=== PATIENT | male | born 1940 | race Caucasian/White ===

== ENCOUNTER 2019-08-02 14:00 | Inpatient (IN) | payer BC, OTHER ==
[~2019-08-02] VITALS: Ht 177.8 cm; Wt 84.8 kg
[2019-08-02] MEDS ORDERED: QUET50TA PO (14:44)
[2019-08-02] MEDS ORDERED: ZIPRASIDONE MESYLATE 20 MG VIAL IM ONE ×4 (15:00→15:45)
[2019-08-02 17:08] LABS: BASOPHILS % (AUTO) 0.6 % (0.0-2.0); EOSINOPHILS % (AUTO) 0.5 % (0.0-7.0); HEMATOCRIT 45.5 % (36.7-47.1); HEMOGLOBIN 15.7 g/dL (12.5-16.3); LYMPHOCYTES % (AUTO) 16.8 % (20.5-51.5); MEAN CORPUSCULAR HEMOGLOBIN 30.3 uug (23.8-33.4); MEAN CORPUSCULAR HGB CONC 35 g/dL (32.5-36.3); MEAN CORPUSCULAR VOLUME 87.5 fL (73.0-96.2); MONOCYTES # (AUTO) 0.6 K/uL (2.0-10.0); MONOCYTES % (AUTO) 9.1 % (0.0-11.0); NEUTROPHILS # (AUTO) 4.5 K/uL (1.8-8.9); PLATELET COUNT (AUTO) 214 K/uL (152-348); RED BLOOD CELL COUNT(AUTO) 5.19 MIL/uL (4.06-5.63); WHITE BLOOD COUNT (AUTO) 6.2 K/uL (3.6-10.2)
[2019-08-02 17:14] LABS: CARBON DIOXIDE 23 mmol/L (21-32); CHLORIDE 107 mmol/L (98-107); CREATININE 0.9 mg/dL (0.6-1.3); GLUCOSE 103 mg/dL (74-106); POTASSIUM 3.3 mmol/L (3.5-5.1); UREA NITROGEN, BLOOD 20 mg/dL (7-18)
[2019-08-02 17:16] LABS: ETHANOL < 3 MG/DL (0-0)
[2019-08-02 17:20] LABS: ALANINE AMINOTRANSFERASE 12 U/L (16-63); ALKALINE PHOSPHATASE 83 U/L (50-136); ASPARTATE AMINOTRANSFERASE 18 U/L (15-37); BILIRUBIN,DIRECT 0.2 mg/dL (0.0-0.2); BILIRUBIN,TOTAL 0.8 mg/dL (0.2-1.0); TOTAL PROTEIN, SERUM 7.4 g/dL (6.4-8.2)
[2019-08-02 17:21] LABS: ACETAMINOPHEN < 2.0 ug/mL (10-30)
[2019-08-02] MEDS ORDERED: KETAMINE HCL 500 MG/10 ML INJ IM ONE (17:30)
[2019-08-02 18:48] VITALS: BP 111/67
[2019-08-02] MEDS ORDERED: POTASSIUM CHLORIDE 20 MEQ TAB.PRT.SR PO ONE (20:45)
[2019-08-02 20:55] VITALS: BP 126/75
[2019-08-02] MEDS ORDERED: MAGNESIUM HYDROXIDE 30 ML LIQUID UDC PO PRN (21:00)
[2019-08-02] MEDS ORDERED: MAG HYDROX/AL HYDROX/SIMETH 30 ML LIQUID UDC PO PRN (21:00)
[2019-08-02] MEDS ORDERED: HALOPERIDOL LACTATE 5 MG/1 ML VIAL IM ONE (21:15)
[2019-08-02] MEDS ORDERED: LORAZEPAM 2 MG/1 ML VIAL IM ONE (21:15)
[2019-08-02] MEDS ORDERED: diphenhydrAMINE 50 MG/1 ML VIAL IM ONE (21:15)
[2019-08-02] MEDS: CLONAZEPAM 0.5 MG TABLET PO PRN (21:40)
[2019-08-03] MEDS ORDERED: TAMS-3 PO (02:34)
[2019-08-03] MEDS ORDERED: FINA5TAB11 PO (02:34)
[2019-08-03 07:30] VITALS: BP 142/91
[2019-08-03] MEDS: DIVALPROEX SPRINKLE 125 MG CAP.SPRINK PO SCH ×2 (10:33→21:34)
[2019-08-03] MEDS: CLONAZEPAM 0.5 MG TABLET PO PRN ×2 (12:30→19:51)
[2019-08-03] MEDS: TAMSULOSIN HCL 0.4 MG CAP.SR.24H PO SCH ×2 (12:30→21:34)
[2019-08-03] MEDS: FINASTERIDE 5 MG TABLET PO SCH (12:30)
[2019-08-03 16:00] VITALS: BP 107/73
[2019-08-03 20:00] VITALS: BP 110/74
[2019-08-03] MEDS: QUETIAPINE FUMARATE 25 MG TABLET PO SCH (21:34)
[2019-08-04 07:12] LABS: BASOPHILS % (AUTO) 0.4 % (0.0-2.0); EOSINOPHILS # (AUTO) 0.1 K/uL (0.0-0.7); EOSINOPHILS % (AUTO) 1.2 % (0.0-7.0); HEMATOCRIT 47.6 % (36.7-47.1); HEMOGLOBIN 15.9 g/dL (12.5-16.3); LYMPHOCYTES # (AUTO) 1.6 K/uL (20.0-40.0); LYMPHOCYTES % (AUTO) 26.7 % (20.5-51.5); MEAN CORPUSCULAR HEMOGLOBIN 30.5 uug (23.8-33.4); MEAN CORPUSCULAR HGB CONC 33 g/dL (32.5-36.3); MEAN CORPUSCULAR VOLUME 91.5 fL (73.0-96.2); MONOCYTES # (AUTO) 0.6 K/uL (2.0-10.0); MONOCYTES % (AUTO) 10.6 % (0.0-11.0); NEUTROPHILS # (AUTO) 3.7 K/uL (1.8-8.9); NEUTROPHILS % (AUTO) 61.1 % (38.5-71.5); PLATELET COUNT (AUTO) 218 K/uL (152-348); RED BLOOD CELL COUNT(AUTO) 5.21 MIL/uL (4.06-5.63); WHITE BLOOD COUNT (AUTO) 6.1 K/uL (3.6-10.2)
[2019-08-04 07:30] VITALS: BP 130/90
[2019-08-04] MEDS: FINASTERIDE 5 MG TABLET PO SCH (08:38)
[2019-08-04] MEDS: DIVALPROEX SPRINKLE 125 MG CAP.SPRINK PO SCH ×2 (08:39→20:11)
[2019-08-04] MEDS ORDERED: Z GUARD REMEDY PASTE 57 GM TUBE TOP PRN (12:00)
[2019-08-04] MEDS: CLONAZEPAM 0.5 MG TABLET PO PRN (13:50)
[2019-08-04 16:00] VITALS: BP 123/75
[2019-08-04] MEDS: TAMSULOSIN HCL 0.4 MG CAP.SR.24H PO SCH (20:11)
[2019-08-04] MEDS: QUETIAPINE FUMARATE 25 MG TABLET PO SCH (20:12)
[2019-08-04] MEDS: Z GUARD REMEDY PASTE 57 GM TUBE TOP SCH (20:12)
[2019-08-04 20:37] VITALS: BP 114/78
[2019-08-04] MEDS: TEMAZEPAM 7.5 MG CAPSULE PO PRN (22:00)
[2019-08-05 07:49] VITALS: BP 157/56
[2019-08-05] MEDS: DIVALPROEX SPRINKLE 125 MG CAP.SPRINK PO SCH ×2 (08:10→20:10)
[2019-08-05] MEDS: FINASTERIDE 5 MG TABLET PO SCH (08:10)
[2019-08-05] MEDS: Z GUARD REMEDY PASTE 57 GM TUBE TOP SCH ×2 (08:10→20:12)
[2019-08-05 12:11] LABS: *BILIRUBIN,URIN 1+ (NEGATIVE); *BLOOD, URINE NEGATIVE (NEGATIVE); *CLARITY,URINE CLEAR (CLEAR); *COLOR,URINE YELLOW (YELLOW); *KETONES,URINE 1+ (NEGATIVE); LEUKOCYTE ESTERASE ,URINE NEGATIVE (NEGATIVE); NITRITE, URINE NEGATIVE (NEGATIVE); UGLUCOSE NEGATIVE (NEGATIVE)
[2019-08-05] MEDS ORDERED: LORAZEPAM 2 MG/1 ML VIAL IM ONE (12:15)
[2019-08-05] MEDS ORDERED: HALOPERIDOL LACTATE 5 MG/1 ML VIAL IM ONE (12:15)
[2019-08-05] MEDS ORDERED: diphenhydrAMINE 50 MG/1 ML VIAL IM ONE (12:15)
[2019-08-05 16:20] VITALS: BP 104/62
[2019-08-05] MEDS: CLONAZEPAM 0.5 MG TABLET PO PRN (17:31)
[2019-08-05] MEDS: QUETIAPINE FUMARATE 25 MG TABLET PO SCH (20:09)
[2019-08-05] MEDS: TAMSULOSIN HCL 0.4 MG CAP.SR.24H PO SCH (20:09)
[2019-08-05 20:23] VITALS: BP 146/60
[2019-08-06 07:46] VITALS: BP 155/62
[2019-08-06] MEDS: DIVALPROEX SPRINKLE 125 MG CAP.SPRINK PO SCH ×2 (08:30→20:40)
[2019-08-06] MEDS: FINASTERIDE 5 MG TABLET PO SCH (08:32)
[2019-08-06] MEDS: Z GUARD REMEDY PASTE 57 GM TUBE TOP SCH ×2 (08:32→20:41)
[2019-08-06] MEDS: CLONAZEPAM 0.5 MG TABLET PO PRN ×2 (08:39→21:16)
[2019-08-06 16:40] VITALS: BP 115/79
[2019-08-06 20:09] VITALS: BP 152/70
[2019-08-06] MEDS: TAMSULOSIN HCL 0.4 MG CAP.SR.24H PO SCH (20:40)
[2019-08-06] MEDS: QUETIAPINE FUMARATE 25 MG TABLET PO SCH (20:40)
[2019-08-06] MEDS: ACETAMINOPHEN 325 MG TABLET PO PRN (21:16)
[2019-08-07 07:30] VITALS: BP 118/69
[2019-08-07] MEDS: DIVALPROEX SPRINKLE 125 MG CAP.SPRINK PO SCH ×3 (08:13→16:02)
[2019-08-07] MEDS: FINASTERIDE 5 MG TABLET PO SCH (08:13)
[2019-08-07] MEDS: CLONAZEPAM 0.5 MG TABLET PO PRN ×3 (08:13→17:22)
[2019-08-07] MEDS: Z GUARD REMEDY PASTE 57 GM TUBE TOP SCH ×2 (08:23→20:27)
[2019-08-07 15:47] VITALS: BP 111/80
[2019-08-07 20:00] VITALS: BP 116/77
[2019-08-07] MEDS: TAMSULOSIN HCL 0.4 MG CAP.SR.24H PO SCH (20:10)
[2019-08-07] MEDS: QUETIAPINE FUMARATE 25 MG TABLET PO SCH (20:10)
[2019-08-08] MEDS: CLONAZEPAM 0.5 MG TABLET PO PRN ×3 (06:28→13:12)
[2019-08-08 07:30] VITALS: BP 128/81
[2019-08-08] MEDS: FINASTERIDE 5 MG TABLET PO SCH (08:33)
[2019-08-08] MEDS: DIVALPROEX SPRINKLE 125 MG CAP.SPRINK PO SCH ×3 (08:34→16:24)
[2019-08-08] MEDS: Z GUARD REMEDY PASTE 57 GM TUBE TOP SCH ×2 (08:40→21:03)
[2019-08-08 15:17] VITALS: BP 124/81
[2019-08-08 20:11] VITALS: BP 111/91
[2019-08-08] MEDS: QUETIAPINE FUMARATE 25 MG TABLET PO SCH (20:11)
[2019-08-08] MEDS: TAMSULOSIN HCL 0.4 MG CAP.SR.24H PO SCH (20:11)
[2019-08-08] MEDS: TEMAZEPAM 7.5 MG CAPSULE PO PRN (21:51)
[2019-08-09 07:30] VITALS: BP 130/86
[2019-08-09] MEDS: FINASTERIDE 5 MG TABLET PO SCH (08:21)
[2019-08-09] MEDS: Z GUARD REMEDY PASTE 57 GM TUBE TOP SCH ×2 (08:22→20:24)
[2019-08-09] MEDS: QUETIAPINE FUMARATE 25 MG TABLET PO SCH ×2 (08:38→20:18)
[2019-08-09] MEDS: DIVALPROEX SPRINKLE 125 MG CAP.SPRINK PO SCH ×3 (08:38→17:02)
[2019-08-09] MEDS ORDERED: QUETIAPINE FUMARATE 25 MG TABLET PO ONE (08:45)
[2019-08-09] MEDS ORDERED: DIVALPROEX SPRINKLE 125 MG CAP.SPRINK PO ONE (08:45)
[2019-08-09] MEDS ORDERED: QUETIAPINE FUMARATE 25 MG TABLET PO SCH (09:00)
[2019-08-09 16:00] VITALS: BP 120/72
[2019-08-09 19:50] VITALS: BP 125/77
[2019-08-09] MEDS: TAMSULOSIN HCL 0.4 MG CAP.SR.24H PO SCH (20:18)
[2019-08-10 07:30] VITALS: BP 144/96
[2019-08-10] MEDS: FINASTERIDE 5 MG TABLET PO SCH (09:27)
[2019-08-10] MEDS: QUETIAPINE FUMARATE 25 MG TABLET PO SCH ×3 (09:27→23:14)
[2019-08-10] MEDS: DIVALPROEX SPRINKLE 125 MG CAP.SPRINK PO SCH ×3 (09:27→17:06)
[2019-08-10] MEDS: Z GUARD REMEDY PASTE 57 GM TUBE TOP SCH ×2 (09:28→21:49)
[2019-08-10 16:00] VITALS: BP 129/89
[2019-08-10 20:37] VITALS: BP 128/73
[2019-08-10] MEDS: TAMSULOSIN HCL 0.4 MG CAP.SR.24H PO SCH (21:00)
[2019-08-11 07:30] VITALS: BP 153/60
[2019-08-11] MEDS: CLONAZEPAM 0.5 MG TABLET PO PRN (09:33)
[2019-08-11] MEDS: FINASTERIDE 5 MG TABLET PO SCH (09:33)
[2019-08-11] MEDS: DIVALPROEX SPRINKLE 125 MG CAP.SPRINK PO SCH ×3 (09:33→21:30)
[2019-08-11] MEDS: Z GUARD REMEDY PASTE 57 GM TUBE TOP SCH ×2 (09:34→21:43)
[2019-08-11] MEDS: QUETIAPINE FUMARATE 25 MG TABLET PO SCH (09:34)
[2019-08-11 16:45] VITALS: BP 144/58
[2019-08-11 20:48] VITALS: BP 159/63
[2019-08-11] MEDS ORDERED: QUETIAPINE FUMARATE 25 MG TABLET PO SCH (21:00)
[2019-08-11] MEDS: TAMSULOSIN HCL 0.4 MG CAP.SR.24H PO SCH (21:30)
[2019-08-11] MEDS: QUETIAPINE FUMARATE 100 MG TABLET PO SCH (21:30)
[2019-08-12 07:30] VITALS: BP 127/70
[2019-08-12] MEDS: QUETIAPINE FUMARATE 25 MG TABLET PO SCH (08:36)
[2019-08-12] MEDS: FINASTERIDE 5 MG TABLET PO SCH (08:36)
[2019-08-12] MEDS: DIVALPROEX SPRINKLE 125 MG CAP.SPRINK PO SCH ×2 (08:36→20:55)
[2019-08-12] MEDS: Z GUARD REMEDY PASTE 57 GM TUBE TOP SCH ×2 (08:43→21:09)
[2019-08-12 16:00] VITALS: BP 120/75
[2019-08-12 20:24] VITALS: BP 139/84
[2019-08-12] MEDS: QUETIAPINE FUMARATE 100 MG TABLET PO SCH (20:55)
[2019-08-12] MEDS: TAMSULOSIN HCL 0.4 MG CAP.SR.24H PO SCH (20:55)
[2019-08-13 07:30] VITALS: BP 115/67
[2019-08-13] MEDS: FINASTERIDE 5 MG TABLET PO SCH (09:22)
[2019-08-13] MEDS: DIVALPROEX SPRINKLE 125 MG CAP.SPRINK PO SCH ×2 (09:22→20:55)
[2019-08-13] MEDS: QUETIAPINE FUMARATE 25 MG TABLET PO SCH (09:22)
[2019-08-13] MEDS: Z GUARD REMEDY PASTE 57 GM TUBE TOP SCH ×2 (09:23→21:02)
[2019-08-13] MEDS: CLONAZEPAM 0.5 MG TABLET PO PRN (11:58)
[2019-08-13 16:00] VITALS: BP 116/58
[2019-08-13 20:22] VITALS: BP 118/64
[2019-08-13] MEDS: TAMSULOSIN HCL 0.4 MG CAP.SR.24H PO SCH (20:55)
[2019-08-13] MEDS: QUETIAPINE FUMARATE 100 MG TABLET PO SCH (20:55)
[2019-08-13] MEDS: ACETAMINOPHEN 325 MG TABLET PO PRN (20:58)
[2019-08-14 07:30] VITALS: BP 98/60
[2019-08-14] MEDS: CLONAZEPAM 0.5 MG TABLET PO PRN ×3 (08:26→17:35)
[2019-08-14] MEDS: QUETIAPINE FUMARATE 25 MG TABLET PO SCH (09:19)
[2019-08-14] MEDS: DIVALPROEX SPRINKLE 125 MG CAP.SPRINK PO SCH ×2 (09:19→21:17)
[2019-08-14] MEDS: FINASTERIDE 5 MG TABLET PO SCH (09:20)
[2019-08-14] MEDS: Z GUARD REMEDY PASTE 57 GM TUBE TOP SCH ×2 (09:21→21:14)
[2019-08-14 15:18] VITALS: BP 136/83
[2019-08-14] MEDS ORDERED: CLONAZEPAM 0.5 MG TABLET PO PRN (17:45)
[2019-08-14 20:00] VITALS: BP 128/78
[2019-08-14] MEDS: TAMSULOSIN HCL 0.4 MG CAP.SR.24H PO SCH (21:17)
[2019-08-14] MEDS: QUETIAPINE FUMARATE 100 MG TABLET PO SCH (21:19)
[2019-08-15 06:52] LABS: CARBON DIOXIDE 29 mmol/L (21-32); CHLORIDE 109 mmol/L (98-107); CREATININE 1.2 mg/dL (0.6-1.3); GLUCOSE 126 mg/dL (74-106); POTASSIUM 3.9 mmol/L (3.5-5.1); UREA NITROGEN, BLOOD 42 mg/dL (7-18)
[2019-08-15 07:30] VITALS: BP 125/93
[2019-08-15] MEDS: DIVALPROEX SPRINKLE 125 MG CAP.SPRINK PO SCH ×2 (08:02→21:36)
[2019-08-15] MEDS: QUETIAPINE FUMARATE 25 MG TABLET PO SCH (08:02)
[2019-08-15] MEDS: ACETAMINOPHEN 325 MG TABLET PO PRN (08:02)
[2019-08-15] MEDS: Z GUARD REMEDY PASTE 57 GM TUBE TOP SCH ×2 (08:02→21:37)
[2019-08-15] MEDS: FINASTERIDE 5 MG TABLET PO SCH (08:02)
[2019-08-15 15:43] VITALS: BP 120/80
[2019-08-15 19:42] VITALS: BP 119/77
[2019-08-15] MEDS: TAMSULOSIN HCL 0.4 MG CAP.SR.24H PO SCH (21:00)
[2019-08-15] MEDS: QUETIAPINE FUMARATE 100 MG TABLET PO SCH (21:36)
[2019-08-16 07:30] VITALS: BP 149/90
[2019-08-16 07:33] LABS: BASOPHILS % (AUTO) 0.3 % (0.0-2.0); EOSINOPHILS # (AUTO) 0.1 K/uL (0.0-0.7); EOSINOPHILS % (AUTO) 0.6 % (0.0-7.0); HEMATOCRIT 53.2 % (36.7-47.1); HEMOGLOBIN 18.4 g/dL (12.5-16.3); LYMPHOCYTES # (AUTO) 1.5 K/uL (20.0-40.0); LYMPHOCYTES % (AUTO) 14.3 % (20.5-51.5); MEAN CORPUSCULAR HEMOGLOBIN 32.2 uug (23.8-33.4); MEAN CORPUSCULAR HGB CONC 35 g/dL (32.5-36.3); MEAN CORPUSCULAR VOLUME 92.9 fL (73.0-96.2); MONOCYTES # (AUTO) 1.1 K/uL (2.0-10.0); MONOCYTES % (AUTO) 10.6 % (0.0-11.0); NEUTROPHILS # (AUTO) 7.9 K/uL (1.8-8.9); NEUTROPHILS % (AUTO) 74.2 % (38.5-71.5); PLATELET COUNT (AUTO) 259 K/uL (152-348); RED BLOOD CELL COUNT(AUTO) 5.72 MIL/uL (4.06-5.63); WHITE BLOOD COUNT (AUTO) 10.6 K/uL (3.6-10.2)
[2019-08-16 07:44] LABS: CARBON DIOXIDE 30 mmol/L (21-32); CHLORIDE 111 mmol/L (98-107); CREATININE 1.1 mg/dL (0.6-1.3); GLUCOSE 110 mg/dL (74-106); MAGNESIUM 2.7 mg/dL (1.8-2.4); PHOSPHOROUS 3.7 mg/dL (2.5-4.9); POTASSIUM 4.5 mmol/L (3.5-5.1); UREA NITROGEN, BLOOD 40 mg/dL (7-18); VALPROIC ACID 72 ug/mL (50-100)
[2019-08-16] MEDS: QUETIAPINE FUMARATE 25 MG TABLET PO SCH (08:57)
[2019-08-16] MEDS: DIVALPROEX SPRINKLE 125 MG CAP.SPRINK PO SCH (08:57)
[2019-08-16] MEDS: FINASTERIDE 5 MG TABLET PO SCH (08:58)
[2019-08-16] MEDS: Z GUARD REMEDY PASTE 57 GM TUBE TOP SCH (09:22)
[2019-08-16] MEDS ORDERED: DIVA125C2 PO (16:26)
[2019-08-16] MEDS ORDERED: QUET100T PO (16:26)
[2019-08-16] MEDS ORDERED: QUET50TA PO (16:26)
[2019-08-16] MEDS ORDERED: FINA5TAB3 PO (16:26)
[2019-08-16] MEDS ORDERED: TAMS-3 PO (16:26)
[2019-08-16] MEDS ORDERED: CLON0.5T PO (16:26)
== END 2019-08-16 15:37 | disposition short-term general hospital (02) | DRG 885 ==
LOC: ER 14:00 → GPS 18:09
PROVIDERS: ADMIT Psychiatry & Neurology Psychiatry
PROC: 0HBRXZZ Excision of Toe Nail, External Approach (ICD-10-PCS; principal; 2019-08-05)
DX: F29 Unspecified psychosis not due to a substance or known physiological condition (principal); N19 Unspecified kidney failure; G93.41 Metabolic encephalopathy; F03.91 Unspecified dementia, unspecified severity, with behavioral disturbance; E87.0 Hyperosmolality and hypernatremia; N40.0 Benign prostatic hyperplasia without lower urinary tract symptoms; F41.9 Anxiety disorder, unspecified; E03.9 Hypothyroidism, unspecified; L60.3 Nail dystrophy; M79.672 Pain in left foot; M79.671 Pain in right foot; E86.9 Volume depletion, unspecified; Z79.899 Other long term (current) drug therapy
CPT/HCPCS: 36415; 70030-TC; 70450; 71045; 80164; 83735; 84100; 84443; 84481; 85025; 85730; 87040; 87086; A4663; C1758; G0480; G0480-TC; J1200; J1630; J2060; J3486

== ENCOUNTER 2019-08-16 15:46 | Inpatient (IN) | payer BC ==
[~2019-08-16] VITALS: Ht 177.8 cm; Wt 90.7 kg
[~2019-08-16 15:46] MED LIST: FINA5TAB11 PO; TAMS-3 PO
[2019-08-16 16:02] VITALS: BP 131/100
[2019-08-16] MEDS ORDERED: TAMS-3 PO (16:26)
[2019-08-16] MEDS ORDERED: DIVA125C2 PO (16:26)
[2019-08-16] MEDS ORDERED: QUET100T PO (16:26)
[2019-08-16] MEDS ORDERED: QUET50TA PO (16:26)
[2019-08-16] MEDS ORDERED: FINA5TAB3 PO (16:26)
[2019-08-16] MEDS ORDERED: CLON0.5T PO (16:26)
--- NOTE | 2019-08-16 16:27 | NUR ---
79 YEAR OLD MALE RECEIVED FROM [facility] TO ROOM 330 .PT IS AXOX1. CALLED FOR ADMISSION ORDERS.
[2019-08-16] MEDS ORDERED: MAG HYDROX/AL HYDROX/SIMETH 30 ML LIQUID UDC PO PRN (16:45)
[2019-08-16] MEDS ORDERED: ACETAMINOPHEN 325 MG TABLET PO PRN ×2 (16:45→18:00)
[2019-08-16] MEDS ORDERED: MAGNESIUM HYDROXIDE 30 ML LIQUID UDC PO PRN (16:45)
[2019-08-16] MEDS ORDERED: HYDROCODONE/APAP 5-325MG TABLET PO PRN (18:00)
[2019-08-16] MEDS ORDERED: ZOLPIDEM 5 MG TABLET PO PRN (18:00)
[2019-08-16] MEDS ORDERED: Z GUARD REMEDY PASTE 57 GM TUBE TOP PRN (18:00)
[2019-08-16] MEDS ORDERED: ONDANSETRON 4 MG/2 ML VIAL IV PRN (18:00)
--- NOTE | 2019-08-16 19:20 | NUR ---
RECEIVED PT ON BED. PT SHOWS NO SIGNS OF ACUTE DISTRESS. PT IV INTACT. SAFETY AND COMFORT PROVIDED. WILL CONTINUE TO MONITOR.
[2019-08-16] MEDS: IV NS 1000 ML 1,000 ML IV PRN (19:39)
[2019-08-16 20:00] VITALS: BP 146/77
[2019-08-16] MEDS: DIVALPROEX SPRINKLE 125 MG CAP.SPRINK PO SCH (20:43)
[2019-08-16] MEDS: QUETIAPINE FUMARATE 100 MG TABLET PO SCH (20:43)
[2019-08-16] MEDS: TAMSULOSIN HCL 0.4 MG CAP.SR.24H PO SCH (20:43)
[2019-08-16] MEDS: ENOXAPARIN SODIUM 40 MG/0.4 ML DISP.SYRIN SQ SCH (20:45)
[2019-08-17] MEDS ORDERED: HALOPERIDOL LACTATE 5 MG/1 ML VIAL IM PRN (00:45)
[2019-08-17 05:00] VITALS: BP 119/74
[2019-08-17 06:37] LABS: BASOPHILS % (AUTO) 0.5 % (0.0-2.0); EOSINOPHILS # (AUTO) 0.1 K/uL (0.0-0.7); HEMATOCRIT 52.5 % (36.7-47.1); HEMOGLOBIN 17.5 g/dL (12.5-16.3); LYMPHOCYTES # (AUTO) 1.6 K/uL (20.0-40.0); LYMPHOCYTES % (AUTO) 21.7 % (20.5-51.5); MEAN CORPUSCULAR HEMOGLOBIN 30.5 uug (23.8-33.4); MEAN CORPUSCULAR HGB CONC 33 g/dL (32.5-36.3); MEAN CORPUSCULAR VOLUME 91.8 fL (73.0-96.2); MONOCYTES # (AUTO) 0.8 K/uL (2.0-10.0); MONOCYTES % (AUTO) 10.3 % (0.0-11.0); NEUTROPHILS % (AUTO) 66.5 % (38.5-71.5); PLATELET COUNT (AUTO) 241 K/uL (152-348); RED BLOOD CELL COUNT(AUTO) 5.72 MIL/uL (4.06-5.63); WHITE BLOOD COUNT (AUTO) 7.6 K/uL (3.6-10.2)
--- NOTE | 2019-08-17 06:39 | NUR ---
AT [address] TIM FREED ORDERED HALDOL 5MG ONCE PRN FOR PT BECOME COMBATIVE, AGITATED AND SPITTING. HALDOL ADMINISTERED . PT TOLERATED IT WELL. PT SLEPT INTERMITTENTLY. PT AGITATED WHEN DOING ADL'S . PRESCRIBED MEDICATION GIVEN AND PT TOLERATED IT WELL. SAFETY AND COMFORT PROVIDED. WILL ENDORSE TO INCOMING NURSE FOR CONTINUITY OF CARE.
[2019-08-17 06:50] LABS: CARBON DIOXIDE 28 mmol/L (21-32); CHLORIDE 112 mmol/L (98-107); CHOLESTEROL 145 mg/dL (<200); CREATININE 0.9 mg/dL (0.6-1.3); GLUCOSE 100 mg/dL (74-106); HDL CHOLESTEROL 56 mg/dL (40-60); MAGNESIUM 2.4 mg/dL (1.8-2.4); PHOSPHOROUS 3.4 mg/dL (2.5-4.9); POTASSIUM 3.8 mmol/L (3.5-5.1); TRIGLYCERIDES 65 MG/DL (30-150); UREA NITROGEN, BLOOD 40 mg/dL (7-18)
--- NOTE | 2019-08-17 08:48 | NUR ---
Pt. sleeping in bed arousable to touch. Pt. has IV in R forearm 20 gauge intact patent running NS 75 cc/hr. Safety measures in place. Call light within reach. Will continue to monitor pt.
[2019-08-17] MEDS ORDERED: FINASTERIDE 5 MG TABLET PO SCH (09:00)
[2019-08-17] MEDS: IV NS 1000 ML 1,000 ML IV PRN (09:19)
[2019-08-17 09:56] LABS: *BILIRUBIN,URIN 1+ (NEGATIVE); *BLOOD, URINE NEGATIVE (NEGATIVE); *CLARITY,URINE SLIGHTLY CLOUDY (CLEAR); *COLOR,URINE YELLOW (YELLOW); *KETONES,URINE 1+ (NEGATIVE); LEUKOCYTE ESTERASE ,URINE NEGATIVE (NEGATIVE); NITRITE, URINE NEGATIVE (NEGATIVE); UGLUCOSE NEGATIVE (NEGATIVE)
[2019-08-17] MEDS ORDERED: IV D5/ 0.9% NACL 1,000 ML IV PRN (10:00)
[2019-08-17 10:25] LABS: MUCUS,URINE FEW /LPF (0-FEW); SQUAMOUS EPITHELIAL CELL,UR MODERATE /HPF (NONE SEEN)
[2019-08-17 10:26] LABS: BACTERIA,URINE FEW /HPF (NONE SEEN); RBC,URINE 0-3 /HPF (0-3); WBC,URINE 0-3 /HPF (0-3)
[2019-08-17] MEDS: DIVALPROEX SPRINKLE 125 MG CAP.SPRINK PO SCH ×3 (10:44→20:34)
[2019-08-17] MEDS: FINASTERIDE 5 MG TABLET PO SCH (10:44)
[2019-08-17 11:24] VITALS: BP 138/75
[2019-08-17 15:07] VITALS: BP 136/76
[2019-08-17] MEDS: IV 1/2NS 1000 ML 1,000 ML IV PRN (16:12)
[2019-08-17] MEDS: ENOXAPARIN SODIUM 40 MG/0.4 ML DISP.SYRIN SQ SCH (18:26)
--- NOTE | 2019-08-17 18:41 | NUR ---
Pt. resting in bed arousable to touch. Pt. took medication throughout shift. Pt. fairly compliant. IV in R forearm 20 gauge intact patent running fluids. Safety measures in place. Call light within reach. Will continue to monitor pt and endorse to PM nurse.
[2019-08-17] MEDS: TAMSULOSIN HCL 0.4 MG CAP.SR.24H PO SCH ×2 (20:25→20:34)
[2019-08-17] MEDS: QUETIAPINE FUMARATE 100 MG TABLET PO SCH ×2 (20:25→20:35)
[2019-08-17 20:48] VITALS: BP 130/74
--- NOTE | 2019-08-17 21:00 | NUR ---
PATIENT REFUSED HS MEDICATION. SPIT IT OUT. UNABLE TO REDIRECT. PATIENT IS VERY CONFUSED AND DISORIENTED. ALL NEEDS ATTENDED. WILL CONTINUE TO MONITOR AND ASSESS.
[2019-08-18 04:51] VITALS: BP 145/79
[2019-08-18] MEDS: IV 1/2NS 1000 ML 1,000 ML IV PRN ×2 (05:54→23:57)
[2019-08-18 06:36] LABS: CARBON DIOXIDE 28 mmol/L (21-32); CHLORIDE 113 mmol/L (98-107); CREATININE 0.9 mg/dL (0.6-1.3); GLUCOSE 89 mg/dL (74-106); POTASSIUM 3.5 mmol/L (3.5-5.1); UREA NITROGEN, BLOOD 34 mg/dL (7-18)
[2019-08-18 06:40] LABS: BASOPHILS % (AUTO) 0.5 % (0.0-2.0); EOSINOPHILS # (AUTO) 0.1 K/uL (0.0-0.7); EOSINOPHILS % (AUTO) 0.9 % (0.0-7.0); HEMATOCRIT 48.7 % (36.7-47.1); HEMOGLOBIN 17.1 g/dL (12.5-16.3); LYMPHOCYTES # (AUTO) 1.7 K/uL (20.0-40.0); LYMPHOCYTES % (AUTO) 22.3 % (20.5-51.5); MEAN CORPUSCULAR HEMOGLOBIN 32.5 uug (23.8-33.4); MEAN CORPUSCULAR HGB CONC 35 g/dL (32.5-36.3); MEAN CORPUSCULAR VOLUME 92.5 fL (73.0-96.2); MONOCYTES # (AUTO) 0.8 K/uL (2.0-10.0); MONOCYTES % (AUTO) 11.2 % (0.0-11.0); NEUTROPHILS # (AUTO) 4.9 K/uL (1.8-8.9); NEUTROPHILS % (AUTO) 65.1 % (38.5-71.5); PLATELET COUNT (AUTO) 238 K/uL (152-348); RED BLOOD CELL COUNT(AUTO) 5.27 MIL/uL (4.06-5.63); WHITE BLOOD COUNT (AUTO) 7.5 K/uL (3.6-10.2)
--- NOTE | 2019-08-18 08:00 | NUR ---
received pt. awake in bed alert oriented to self. IV infiltrated on R forearm. Removed IV, elevated arm, and put cold compress on arm. Will continue to monitor site. New IV in L hand 20 gauge intact patent running fluid. Safety measures in place. Call light within reach. Will continue to monitor pt.
[2019-08-18] MEDS: FINASTERIDE 5 MG TABLET PO SCH (08:32)
[2019-08-18] MEDS: DIVALPROEX SPRINKLE 125 MG CAP.SPRINK PO SCH ×3 (08:32→21:00)
[2019-08-18 11:53] VITALS: BP 134/86
--- NOTE | 2019-08-18 13:20 | NUR ---
Oral care done. AM medications given. Pt. took all medications. safety measures in place. Call light within reach will continue to monitor pt.
[2019-08-18 15:51] VITALS: BP 142/94
[2019-08-18] MEDS: ENOXAPARIN SODIUM 40 MG/0.4 ML DISP.SYRIN SQ SCH (17:43)
--- NOTE | 2019-08-18 19:01 | NUR ---
Pt. resting in bed alert oriented to self. Pt. denies pain or discomfort. Pt. denies SOB/ difficulty breathing. Safety measures in place. Calll light within reach. Will endorse to PM nurse.
[2019-08-18 19:57] VITALS: BP 142/88
--- NOTE | 2019-08-18 20:00 | NUR ---
PATIENT ASLEEP IN BED. EASILY AROUSABLE. ALERT TO SELF ONLY. CONFUSED. UNABLE TO COMPREHEND. IVF INFUSING TO LEFT HAND. ON RA. VS WNL. NO S/S OF ANY PAIN OR DISCOMFORT. NO RESP. DISTRESS NOTED. BED ALARM ON. CALL LIGHT IN REACH. ALL NEEDS ATTENDED. WILL CONTINUE TO MONITOR AND ASSESS.
[2019-08-18] MEDS: QUETIAPINE FUMARATE 100 MG TABLET PO SCH ×2 (20:32→21:00)
[2019-08-18] MEDS: TAMSULOSIN HCL 0.4 MG CAP.SR.24H PO SCH ×2 (20:32→21:00)
--- NOTE | 2019-08-18 21:10 | NUR ---
PATIENT REFUSED HS MEDS. BENCH ASSEMBLER [employer]TERY NOTIFIED.
[2019-08-19 05:16] VITALS: BP 116/82
--- NOTE | 2019-08-19 05:45 | NUR ---
PATIENT ASLEEP IN BED. SLEPT WELL. IVF INFUSING WELL. BED ALARM ON. REPOSITIONED. BED ALARM ON. CALL LIGHT IN REACH, ALL NEEDS ATTENDED, WILL CONTINUE TO MONITOR AND ASSESS.
[2019-08-19 06:30] LABS: BASOPHILS % (AUTO) 0.6 % (0.0-2.0); EOSINOPHILS # (AUTO) 0.1 K/uL (0.0-0.7); EOSINOPHILS % (AUTO) 0.8 % (0.0-7.0); HEMATOCRIT 46.9 % (36.7-47.1); HEMOGLOBIN 15.9 g/dL (12.5-16.3); LYMPHOCYTES # (AUTO) 1.7 K/uL (20.0-40.0); LYMPHOCYTES % (AUTO) 24.5 % (20.5-51.5); MEAN CORPUSCULAR HEMOGLOBIN 30.9 uug (23.8-33.4); MEAN CORPUSCULAR HGB CONC 34 g/dL (32.5-36.3); MEAN CORPUSCULAR VOLUME 90.9 fL (73.0-96.2); MONOCYTES # (AUTO) 0.9 K/uL (2.0-10.0); MONOCYTES % (AUTO) 12.9 % (0.0-11.0); NEUTROPHILS # (AUTO) 4.2 K/uL (1.8-8.9); NEUTROPHILS % (AUTO) 61.2 % (38.5-71.5); PLATELET COUNT (AUTO) 219 K/uL (152-348); RED BLOOD CELL COUNT(AUTO) 5.16 MIL/uL (4.06-5.63); WHITE BLOOD COUNT (AUTO) 6.9 K/uL (3.6-10.2)
[2019-08-19 06:46] LABS: CARBON DIOXIDE 25 mmol/L (21-32); CHLORIDE 111 mmol/L (98-107); CREATININE 0.8 mg/dL (0.6-1.3); GLUCOSE 81 mg/dL (74-106); MAGNESIUM 2.2 mg/dL (1.8-2.4); PHOSPHOROUS 2.6 mg/dL (2.5-4.9); POTASSIUM 3.3 mmol/L (3.5-5.1); UREA NITROGEN, BLOOD 28 mg/dL (7-18)
[2019-08-19] MEDS: FINASTERIDE 5 MG TABLET PO SCH (08:18)
[2019-08-19] MEDS: DIVALPROEX SPRINKLE 125 MG CAP.SPRINK PO SCH ×2 (08:19→20:46)
--- NOTE | 2019-08-19 09:00 | NUR ---
Patient AO to Name, no distress, took medications with pudding, cooperative, gets agitated at times, Safety reinforced, manager intensive care at bed side
[2019-08-19 12:34] VITALS: BP 127/76
[2019-08-19] MEDS: IV 1/2NS 1000 ML 1,000 ML IV PRN (12:52)
[2019-08-19] MEDS ORDERED: POTASSIUM CHLORIDE 20 MEQ TAB.PRT.SR PO ONE (15:15)
[2019-08-19 15:46] VITALS: BP 116/58
[2019-08-19] MEDS: ENOXAPARIN SODIUM 40 MG/0.4 ML DISP.SYRIN SQ SCH (17:30)
--- NOTE | 2019-08-19 19:03 | NUR ---
Patient is AO 1-2, no resp distress, oral care is done times 3, suctioned as needed with arik, meds were taken crushed with pudding. Iv fluid running at 75 safety maintained
[2019-08-19 20:45] VITALS: BP 116/67
[2019-08-19] MEDS: TAMSULOSIN HCL 0.4 MG CAP.SR.24H PO SCH (20:45)
[2019-08-19] MEDS: QUETIAPINE FUMARATE 100 MG TABLET PO SCH (20:46)
[2019-08-20] MEDS: IV 1/2NS 1000 ML 1,000 ML IV PRN (02:44)
[2019-08-20 06:31] VITALS: BP 97/62
[2019-08-20 06:39] LABS: BASOPHILS % (AUTO) 0.5 % (0.0-2.0); EOSINOPHILS % (AUTO) 0.5 % (0.0-7.0); HEMATOCRIT 43.7 % (36.7-47.1); HEMOGLOBIN 14.9 g/dL (12.5-16.3); LYMPHOCYTES # (AUTO) 1.1 K/uL (20.0-40.0); MEAN CORPUSCULAR HEMOGLOBIN 30.8 uug (23.8-33.4); MEAN CORPUSCULAR HGB CONC 34 g/dL (32.5-36.3); MEAN CORPUSCULAR VOLUME 90.7 fL (73.0-96.2); MONOCYTES # (AUTO) 0.7 K/uL (2.0-10.0); NEUTROPHILS # (AUTO) 5.3 K/uL (1.8-8.9); PLATELET COUNT (AUTO) 193 K/uL (152-348); RED BLOOD CELL COUNT(AUTO) 4.82 MIL/uL (4.06-5.63); WHITE BLOOD COUNT (AUTO) 7.2 K/uL (3.6-10.2)
[2019-08-20 06:53] LABS: CREATININE 0.9 mg/dL (0.6-1.3)
--- NOTE | 2019-08-20 06:56 | NUR ---
PATIENT INTERMITTENTLY SLEEPING. SLEPT ABOUT 7.5 HRS DURING THE SHIFT. PERSONAL BELT DRESSER AT THE BED SIDE. NO BEHAVIORAL PROBLEMS NOTED. COMPLIANT WITH MEDICATION
[2019-08-20] MEDS: FINASTERIDE 5 MG TABLET PO SCH (08:00)
[2019-08-20] MEDS: DIVALPROEX SPRINKLE 125 MG CAP.SPRINK PO SCH ×2 (08:00→22:21)
[2019-08-20 11:06] VITALS: BP 109/68
[2019-08-20 15:08] VITALS: BP 121/70
--- NOTE | 2019-08-20 18:08 | NUR ---
PATIENT STAYED IN BED, CAREGIVER AT BEDSIDE, NO AGGRESSIVE BEHAVIOR NOTED DURING THE SHIFT, NO SOB, RESP EVEN NONLABORED,NO ACUTE DISTRESS NOTED
[2019-08-20 20:30] VITALS: BP 104/56
[2019-08-20] MEDS: QUETIAPINE FUMARATE 100 MG TABLET PO SCH (22:16)
[2019-08-20] MEDS: TAMSULOSIN HCL 0.4 MG CAP.SR.24H PO SCH (22:16)
[2019-08-20] MEDS: ENOXAPARIN SODIUM 40 MG/0.4 ML DISP.SYRIN SQ SCH (22:20)
[2019-08-21 05:17] VITALS: BP 94/59
[2019-08-21 07:04] LABS: BASOPHILS % (AUTO) 0.6 % (0.0-2.0); EOSINOPHILS # (AUTO) 0.1 K/uL (0.0-0.7); EOSINOPHILS % (AUTO) 1.7 % (0.0-7.0); HEMATOCRIT 44.7 % (36.7-47.1); HEMOGLOBIN 15.3 g/dL (12.5-16.3); LYMPHOCYTES # (AUTO) 1.6 K/uL (20.0-40.0); LYMPHOCYTES % (AUTO) 23.9 % (20.5-51.5); MEAN CORPUSCULAR HEMOGLOBIN 30.9 uug (23.8-33.4); MEAN CORPUSCULAR HGB CONC 34 g/dL (32.5-36.3); MEAN CORPUSCULAR VOLUME 90.2 fL (73.0-96.2); MONOCYTES # (AUTO) 0.6 K/uL (2.0-10.0); MONOCYTES % (AUTO) 9.9 % (0.0-11.0); NEUTROPHILS # (AUTO) 4.2 K/uL (1.8-8.9); NEUTROPHILS % (AUTO) 63.9 % (38.5-71.5); PLATELET COUNT (AUTO) 189 K/uL (152-348); RED BLOOD CELL COUNT(AUTO) 4.96 MIL/uL (4.06-5.63); WHITE BLOOD COUNT (AUTO) 6.5 K/uL (3.6-10.2)
[2019-08-21 07:29] LABS: BILIRUBIN,TOTAL 0.6 mg/dL (0.2-1.0); CREATININE 0.8 mg/dL (0.6-1.3); MAGNESIUM 2.1 mg/dL (1.8-2.4); POTASSIUM 3.3 mmol/L (3.5-5.1); TOTAL PROTEIN, SERUM 6.4 g/dL (6.4-8.2)
[2019-08-21 08:00] VITALS: BP 123/73
--- NOTE | 2019-08-21 08:00 | NUR ---
Sleeping, appears comfortable, with personal vehicle advisor at bedside
[2019-08-21] MEDS: DIVALPROEX SPRINKLE 125 MG CAP.SPRINK PO SCH ×2 (09:29→20:57)
[2019-08-21] MEDS: FINASTERIDE 5 MG TABLET PO SCH (09:30)
[2019-08-21] MEDS ORDERED: POTASSIUM CHLORIDE 20 MEQ TAB.PRT.SR PO ONE (11:00)
[2019-08-21 11:36] VITALS: BP 98/61
[2019-08-21] MEDS ORDERED: POTASSIUM CHLORIDE 20 MEQ POWDER PACKET PO ONE (13:15)
--- NOTE | 2019-08-21 13:15 | NUR ---
K 3.3 Potassium oral given as ordered. Spoke with PT regarding re eval, will see patient tomorrow
[2019-08-21 15:42] VITALS: BP 145/78
--- NOTE | 2019-08-21 18:47 | NUR ---
Kept dry and comfortable. Afebrile, not in distress.
--- NOTE | 2019-08-21 20:00 | NUR ---
Patient received into care, sleeping in bed, resting comfortably, with caregiver at side. All safety and fall precaution measures are in place. Call light and personal items are within reach at all times. Will continue to monitor.
[2019-08-21 20:25] VITALS: BP 149/75
[2019-08-21] MEDS: QUETIAPINE FUMARATE 100 MG TABLET PO SCH (20:57)
[2019-08-21] MEDS: TAMSULOSIN HCL 0.4 MG CAP.SR.24H PO SCH (20:57)
[2019-08-21] MEDS: ENOXAPARIN SODIUM 40 MG/0.4 ML DISP.SYRIN SQ SCH (20:59)
[2019-08-22 05:57] VITALS: BP 137/74
--- NOTE | 2019-08-22 06:15 | NUR ---
Patient slept throughout night comfortably with caregiver at bedside. Patient was compliant with medication regimen but refused morning blood draw with exchange teller. All prescribed medications were given as ordered and tolerated well, with no adverse side effects noted or observed. Safety and fall precaution measures remain in place. Call light and personal items remain within reach at all times.
[2019-08-22] MEDS: FINASTERIDE 5 MG TABLET PO SCH (10:11)
[2019-08-22] MEDS: DIVALPROEX SPRINKLE 125 MG CAP.SPRINK PO SCH ×2 (10:11→21:06)
[2019-08-22 12:14] VITALS: BP 103/80
[2019-08-22 16:32] VITALS: BP 123/74
--- NOTE | 2019-08-22 19:13 | NUR ---
Pt received this morning, resting in bed. Pt assisted to sit at the side of the bed with feet dangling to floor, required assistance. PT evaluation done. Pt private hospice primary care physician Hafsa has remained at bedside throughout the shift. Pt assessed, AAOx1, Pt compliant with routine morning medications crushed in vanilla pudding, poor appetite otherwise. Pt demonstrates fatigue and lack of interest in anything other than resting. Pt clean and dry. All safety and comfort measures implemented. Bed in locked and lowest position with side rails and bed alarm on, with primary care physician at bed side. Pt court appointed conservator called, informed about tomorrows anticipated evaluation for placement following discharge. All needs attended to. Call light within reach. Will continue to monitor and endorse to maintenance technician 2nd shift.
--- NOTE | 2019-08-22 20:00 | NUR ---
Patient received into care awake and resting comfortably in bed with caregiver at side. Patient is alert and oriented x1. No outward s/s of acute pain or discomfort noted or observed. All safety and fall precaution measures are in place. Call light and personal items are within reach at all times. Will continue to monitor.
[2019-08-22 20:05] VITALS: BP 115/69
[2019-08-22] MEDS: TAMSULOSIN HCL 0.4 MG CAP.SR.24H PO SCH (21:06)
[2019-08-22] MEDS: QUETIAPINE FUMARATE 100 MG TABLET PO SCH (21:06)
[2019-08-22] MEDS: ENOXAPARIN SODIUM 40 MG/0.4 ML DISP.SYRIN SQ SCH (21:08)
[2019-08-23 06:30] LABS: BASOPHILS % (AUTO) 0.6 % (0.0-2.0); EOSINOPHILS # (AUTO) 0.2 K/uL (0.0-0.7); EOSINOPHILS % (AUTO) 2.5 % (0.0-7.0); HEMOGLOBIN 16.5 g/dL (12.5-16.3); LYMPHOCYTES # (AUTO) 1.4 K/uL (20.0-40.0); LYMPHOCYTES % (AUTO) 23.3 % (20.5-51.5); MEAN CORPUSCULAR HEMOGLOBIN 31.9 uug (23.8-33.4); MEAN CORPUSCULAR HGB CONC 35 g/dL (32.5-36.3); MEAN CORPUSCULAR VOLUME 91.1 fL (73.0-96.2); MONOCYTES # (AUTO) 0.7 K/uL (2.0-10.0); MONOCYTES % (AUTO) 11.2 % (0.0-11.0); NEUTROPHILS # (AUTO) 3.8 K/uL (1.8-8.9); NEUTROPHILS % (AUTO) 62.4 % (38.5-71.5); PLATELET COUNT (AUTO) 217 K/uL (152-348); RED BLOOD CELL COUNT(AUTO) 5.17 MIL/uL (4.06-5.63)
[2019-08-23 06:34] VITALS: BP 125/73
[2019-08-23 06:43] LABS: CARBON DIOXIDE 27 mmol/L (21-32); CHLORIDE 106 mmol/L (98-107); CREATININE 0.9 mg/dL (0.6-1.3); GLUCOSE 83 mg/dL (74-106); PHOSPHOROUS 2.7 mg/dL (2.5-4.9); UREA NITROGEN, BLOOD 21 mg/dL (7-18)
--- NOTE | 2019-08-23 06:58 | NUR ---
Patient slept throughout night with caregiver at side and no s/s of acute distress or discomfort noted or observed. All prescribed medications provided as ordered and tolerated well, with no adverse side effects noted or observed. All safety and fall precaution measures remain in place. Call light and personal items remain within reach at all times.
[2019-08-23] MEDS: DIVALPROEX SPRINKLE 125 MG CAP.SPRINK PO SCH ×2 (08:33→20:53)
[2019-08-23] MEDS: FINASTERIDE 5 MG TABLET PO SCH (08:33)
[2019-08-23 12:01] VITALS: BP 115/73
[2019-08-23 16:20] VITALS: BP 110/63
[2019-08-23] MEDS: HALOPERIDOL LACTATE 5 MG/1 ML VIAL IM PRN (16:53)
--- NOTE | 2019-08-23 18:52 | NUR ---
PATIENT IN BED WITH CAREGIVER AT BEDSIDE. NO S/S OF ACUTE DISTRESS NOTED, IV INTACT AND PATENT, NO C/O PAIN AT THIS TIME. SAFETY AND COMFORT PROVIDED. WILL CONTINUE TO MONITOR, CALL LIGHT WITHIN REACHED.
--- NOTE | 2019-08-23 19:30 | NUR ---
Pt in bed, calm. Eyes closed. Caregiver at bedside. Will continue to monitor.
[2019-08-23 20:08] VITALS: BP 140/62
[2019-08-23] MEDS: TAMSULOSIN HCL 0.4 MG CAP.SR.24H PO SCH (20:53)
[2019-08-23] MEDS: QUETIAPINE FUMARATE 100 MG TABLET PO SCH (20:53)
[2019-08-23] MEDS: ENOXAPARIN SODIUM 40 MG/0.4 ML DISP.SYRIN SQ SCH (20:55)
[2019-08-24 06:41] VITALS: BP 110/74
--- NOTE | 2019-08-24 07:22 | NUR ---
NO SIGNIFICANT CHANGE DURING SHIFT. SLEEPING AT THIS TIME. CAREGIVER AT BEDSIDE.
--- NOTE | 2019-08-24 07:30 | NUR ---
Patient sleeping in bed ; with no signs of distress; caregiver by bedside; patient will continue to be monitored.
[2019-08-24] MEDS: FINASTERIDE 5 MG TABLET PO SCH (09:11)
[2019-08-24] MEDS: DIVALPROEX SPRINKLE 125 MG CAP.SPRINK PO SCH ×2 (09:11→21:42)
[2019-08-24 11:40] VITALS: BP 116/73
[2019-08-24] MEDS: HYDROCORTISONE 2.5% ONT. 28.35 GM TUBE TP SCH ×2 (13:01→17:26)
[2019-08-24 15:53] VITALS: BP 130/81
--- NOTE | 2019-08-24 19:00 | NUR ---
Patient had was combative through out shift. Patient had to be reorientated multiple times. Patient has caregiver by bedside; patient ate small portions throughout shift. Patient had long periods of time sleeping. Report given to oncoming shift.
[2019-08-24 20:22] VITALS: BP 116/69
[2019-08-24] MEDS: QUETIAPINE FUMARATE 100 MG TABLET PO SCH (21:41)
[2019-08-24] MEDS: TAMSULOSIN HCL 0.4 MG CAP.SR.24H PO SCH (21:42)
[2019-08-24] MEDS: ENOXAPARIN SODIUM 40 MG/0.4 ML DISP.SYRIN SQ SCH (21:44)
[2019-08-24] MEDS: HALOPERIDOL LACTATE 5 MG/1 ML VIAL IM PRN (21:50)
[2019-08-25 05:14] VITALS: BP 122/65
--- NOTE | 2019-08-25 05:31 | NUR ---
patient received lying in bed with caregiver at bedside who stayed overnight. slept intermittently on my shift. medications administered with no adverse effects. Ambien and Haldol administered. patient tolerated well. safety and comfort measures provided at all times. aspiration precautions provided. will continue to monitor and endorse accordingly to morning nurse.
[2019-08-25] MEDS: DIVALPROEX SPRINKLE 125 MG CAP.SPRINK PO SCH ×2 (08:32→20:11)
[2019-08-25] MEDS: HYDROCORTISONE 2.5% ONT. 28.35 GM TUBE TP SCH ×3 (08:32→16:04)
[2019-08-25] MEDS: FINASTERIDE 5 MG TABLET PO SCH (08:32)
[2019-08-25 12:08] VITALS: BP 141/78
[2019-08-25 16:29] VITALS: BP 134/71
[2019-08-25] MEDS: HALOPERIDOL LACTATE 5 MG/1 ML VIAL IM PRN (20:11)
[2019-08-25] MEDS: TAMSULOSIN HCL 0.4 MG CAP.SR.24H PO SCH (20:11)
[2019-08-25] MEDS: QUETIAPINE FUMARATE 100 MG TABLET PO SCH (20:11)
[2019-08-25] MEDS: ENOXAPARIN SODIUM 40 MG/0.4 ML DISP.SYRIN SQ SCH (20:33)
[2019-08-25 20:38] VITALS: BP 112/60
[2019-08-26 04:00] VITALS: BP 117/62
[2019-08-26] MEDS: DIVALPROEX SPRINKLE 125 MG CAP.SPRINK PO SCH (09:00)
[2019-08-26] MEDS: FINASTERIDE 5 MG TABLET PO SCH (09:00)
[2019-08-26] MEDS: HYDROCORTISONE 2.5% ONT. 28.35 GM TUBE TP SCH (09:01)
[2019-08-26] MEDS: HALOPERIDOL LACTATE 5 MG/1 ML VIAL IM PRN (09:42)
--- NOTE | 2019-08-26 11:19 | NUR ---
dc orers received noted and carried out,dc instruction given to the pt caregiver,dc heplock per md orders,pt left the facility via ambulances in stable condition
== END 2019-08-26 11:21 | DRG 640 ==
LOC: MEDSURG3 15:46
PROVIDERS: ADMIT Nurse Practitioner Acute Care; ATTEND Nurse Practitioner Acute Care
DX: E86.0 Dehydration (principal); G93.41 Metabolic encephalopathy; E44.0 Moderate protein-calorie malnutrition; J98.11 Atelectasis; D68.59 Other primary thrombophilia; F23 Brief psychotic disorder; E87.0 Hyperosmolality and hypernatremia; E03.9 Hypothyroidism, unspecified; F41.9 Anxiety disorder, unspecified; N40.0 Benign prostatic hyperplasia without lower urinary tract symptoms; M46.04 Spinal enthesopathy, thoracic region; L23.9 Allergic contact dermatitis, unspecified cause; E87.6 Hypokalemia; Z74.09 Other reduced mobility
CPT/HCPCS: 36415; 71045; 83735; 84100; 85025; A4663; G0378; J1630; J1650; J3490; J7030